=== PATIENT | female | born 1960 | race Caucasian/White ===

== ENCOUNTER 2018-03-25 06:44 | Day surgery (SDC) | payer BC, OTHER ==
[~2018-03-25 06:44] MED LIST: Buffered Lidocaine 1% SYRIN* 1 ML/SYRINGE INTRADERM ONE; Dexamethasone IV* 4 MG/ML 1 ML (4 MG) IV SLOW PU ONE; Famotidine IV* 10 MG/ML 2 ML (20 mg) IV ONE; Lactated Ringers 1000 ML Bag* 1,000 ML IV SCH; Scopolamine 1.5 mg* PATCH TRANSDERM ONE
[2018-03-25] MEDS ORDERED: Famotidine IV* 10 MG/ML 2 ML (20 mg) ONE (07:02)
[2018-03-25] MEDS ORDERED: Dexamethasone IV* 4 MG/ML 1 ML (4 MG) ONE (07:03)
[2018-03-25] MEDS ORDERED: Scopolamine 1.5 mg* PATCH ONE (07:03)
[2018-03-25 07:55] LABS: Hematocrit 37 % (35-47); Hemoglobin 12.6 g/dl (12.0-16.0); Mean Corpuscular HGB Conc 34 g/dl (31-36); Mean Corpuscular Hemoglobin 30 pg (27-31); Mean Corpuscular Volume 89 fL (80-97); Mean Platelet Volume 7.4 fL (7.4-10.4); Platelet Count 261 10^3/ul (150-450); Red Blood Count 4.13 10^6/ul (4.00-5.40); Red Cell Distribution Width 14 % (10.5-15)
[2018-03-25] MEDS ORDERED: Midazolam* 1 MG/ML 5 ML VIAL (5 MG) ONE (08:24)
[2018-03-25] MEDS ORDERED: Silver Nitrate/Potassium Nitr* 1 EA STICK ONE (08:59)
[2018-03-25] MEDS ORDERED: Naloxone* 0.4 MG/ML 1 ML VIAL IV PRN (09:10)
[2018-03-25] MEDS ORDERED: Ondansetron INJ* 2 MG/ML VIAL IV PRN (09:10)
[2018-03-25] MEDS ORDERED: Ketorolac INJ* 30 MG/ML 1 ML VIAL IV PRN (09:10)
[2018-03-25] MEDS ORDERED: Chloroprocaine 2%* 20 ML VIAL ONE (09:52)
[2018-03-25] MEDS ORDERED: Ketorolac INJ* 30 MG/ML 1 ML VIAL ONE (10:40)
[2018-03-25 11:03] VITALS: BP 157/96
--- NOTE | 2018-03-25 11:46 | OP ---
DATE OF OPERATION: 03/25/18 - [facility] DATE OF : 64 SURGEON: Jennifer Pierce MD. ANESTHESIOLOGIST: Dr. Askew. ANESTHESIA: Spinal. PRE-OP DIAGNOSIS: Abnormal uterine bleeding. POST-OP DIAGNOSES: 1. Abnormal uterine bleeding. 2. Endometrial polyps. OPERATIVE PROCEDURE: Hysteroscopy, dilation and curettage, and polypectomy using MyoSure. ESTIMATED BLOOD LOSS: 30 cc. URINE OUTPUT: 50 cc. IV FLUIDS: 300 cc Lactated Ringer's. HYSTEROSCOPIC DEFICIT: 300 cc normal saline. MATERIALS TO LAB: Endometrial curettings and endometrial polyps. INDICATIONS: This patient is a 58-year-old 3, para 3, who presented recently with prolonged heavy menstrual bleeding. The patient is 58, but was still having regular menses. Endometrial biopsy performed in the office returned with benign endometrium, but the vaginal ultrasound had noted a thickened endometrium with possible polyp. We discussed her situation at length and she desired to proceed with the hysteroscopic evaluation with possible polypectomy. She was extensively counseled and consent was signed. FINDINGS: Fairly large uterine cavity sounding to about 11 to 12 cm. Several small endometrial polyps appeared to be present in addition to areas of thick endometrium. No other masses were seen. COMPLICATIONS: None. DESCRIPTION OF PROCEDURE: The risks, benefits, and alternatives were described to the patient, and informed consent was obtained. The patient was taken to the operating room with IV running where spinal anesthesia was induced and found to be adequate. The patient was prepped and draped in the normal sterile fashion in the high lithotomy position and Sulaiman stirrups. A time-out was performed. The bladder was emptied. A bimanual exam was performed. A bivalve speculum was placed in the vaginal and a single-toothed tenaculum was placed on the anterior cervix. The cervix was then gently dilated using Hegar dilators to a size of 6 to 7 mm. At that time, the MyoSure hysteroscope was advanced through the cervix and into the uterine cavity with saline running. An [employer] fluid management system was used. The endometrial cavity was well visualized and several polyps appeared to be present on the right side of the uterus. There also appeared to be some fairly thick endometrial tissue. A MyoSure LITE device was then prepared and used to resect all of the polyps. The hysteroscope was then removed. A medium Banjo curette was then advanced into the uterine cavity and a curettage of the entire uterine cavity was performed with the curettings collected on Telfa. The tenaculum was then removed from the cervix and there was good hemostasis present. The speculum was removed and the patient was returned to the supine position. The patient tolerated the procedure well. Sponge, lap, and needle counts were correct x2. [id number]/[facility] #: [id number] MTDD
== END 2018-03-25 11:37 | disposition home or self-care (01) ==
LOC: OR 06:44
PROVIDERS: ATTEND Obstetrics & Gynecology
DX: N93.9 Abnormal uterine and vaginal bleeding, unspecified (principal); N84.0 Polyp of corpus uteri; Z01.818 Encounter for other preprocedural examination; Z88.2 Allergy status to sulfonamides
CPT/HCPCS: 36415; 81025; 85027; 86850; 86900; 86901; 88305; A9270-GY; J1100; J1885; J2250; J2400